=== PATIENT | male | born 1960 | race Caucasian/White ===

== ENCOUNTER 2016-07-03 15:29 | Outpatient (RCR) | payer OTHER | END 2016-10-01 | disposition home or self-care (01) | LOC: CARDREHAB 15:29 | DX: Z48.812 Encounter for surgical aftercare following surgery on the circulatory system (principal); Z95.5 Presence of coronary angioplasty implant and graft ==

== ENCOUNTER 2016-10-02 12:00 | Outpatient (RCR) | payer OTHER | END 2016-12-31 | disposition home or self-care (01) | LOC: CARDREHAB | DX: Z48.812 Encounter for surgical aftercare following surgery on the circulatory system (principal); Z95.5 Presence of coronary angioplasty implant and graft ==